=== PATIENT | female | born 1995 | race Caucasian/White ===

== ENCOUNTER 2018-06-26 11:14 | Emergency (ER) | payer OTHER ==
[~2018-06-26] VITALS: Ht 167.6 cm; Wt 120.2 kg
[2018-06-26 12:46] LABS: BASOPHIL % 0.2 % (0-2)
[2018-06-26 12:54] LABS: CARBON DIOXIDE 22.9 mmol/L (21-32); CHLORIDE SERUM 102 mmol/L (98-107); CREATININE SERUM 0.9 mg/dL (0.6-1.0); GFR1 > 60 mL/min; GLUCOSE SERUM 90 mg/dL (74-106); POTASSIUM SERUM 3.3 mmol/L (3.5-5.1); SODIUM SERUM 135 mmol/L (136-145)
[2018-06-26 13:32] LABS: RED CELL DISTRIBUTION WIDTH 13.1 % (11.5-14.5)
[2018-06-26 13:33] LABS: PLATELET COUNT 265 x10^3mcL (130-400)
[2018-06-26 13:40] VITALS: BP 114/59
== END 2018-06-26 13:40 | disposition home or self-care (01) ==
LOC: ED 11:14
PROVIDERS: Emergency Medicine
DX: E87.6 Hypokalemia (principal); R42 Dizziness and giddiness; Z48.01 Encounter for change or removal of surgical wound dressing
CPT/HCPCS: 36415; Q0162

== ENCOUNTER 2018-07-20 12:56 | Emergency (ER) | payer OTHER ==
[~2018-07-20] VITALS: Ht 167.6 cm; Wt 118.8 kg
[2018-07-20 12:58] VITALS: Ht 167.6 cm; Wt 118.8 kg
[2018-07-20 13:32] VITALS: BP 106/49
== END 2018-07-20 13:32 | disposition home or self-care (01) ==
LOC: ED 12:56
DX: H10.89 Other conjunctivitis (principal); J45.909 Unspecified asthma, uncomplicated; F17.210 Nicotine dependence, cigarettes, uncomplicated; Z98.890 Other specified postprocedural states

== ENCOUNTER 2018-09-11 16:33 | Emergency (ER) | payer OTHER ==
[~2018-09-11] VITALS: Ht 167.6 cm; Wt 122.9 kg
[2018-09-11 16:42] VITALS: Ht 167.6 cm; Wt 122.9 kg
[2018-09-11 18:53] VITALS: BP 104/55
== END 2018-09-11 18:53 | disposition home or self-care (01) ==
LOC: ED 16:33
DX: L02.211 Cutaneous abscess of abdominal wall (principal); J45.909 Unspecified asthma, uncomplicated; F17.210 Nicotine dependence, cigarettes, uncomplicated
CPT/HCPCS: J1885; J2001

== ENCOUNTER 2018-09-13 09:34 | Emergency (ER) | payer OTHER ==
[~2018-09-13] VITALS: Ht 167.6 cm; Wt 123.8 kg
[2018-09-13 09:53] VITALS: Ht 167.6 cm; Wt 123.8 kg
[2018-09-13 10:31] VITALS: BP 110/59
== END 2018-09-13 10:31 | disposition home or self-care (01) ==
LOC: ED 09:34
DX: L02.211 Cutaneous abscess of abdominal wall (principal); J45.909 Unspecified asthma, uncomplicated; F17.210 Nicotine dependence, cigarettes, uncomplicated; Z98.890 Other specified postprocedural states

== ENCOUNTER 2018-10-23 08:58 | Emergency (ER) | payer OTHER ==
[~2018-10-23] VITALS: Ht 167.6 cm; Wt 127.0 kg
[2018-10-23 09:02] VITALS: BP 133/93; Ht 167.6 cm; Wt 127.0 kg
== END 2018-10-23 09:36 | disposition home or self-care (01) ==
LOC: ED 08:58
DX: J02.9 Acute pharyngitis, unspecified (principal); J45.909 Unspecified asthma, uncomplicated

== ENCOUNTER 2019-01-13 12:53 | Emergency (ER) | payer OTHER ==
[~2019-01-13] VITALS: Ht 167.6 cm; Wt 122.5 kg
[2019-01-13 12:57] VITALS: BP 109/67; Ht 167.6 cm; Wt 122.5 kg
== END 2019-01-13 15:33 | disposition home or self-care (01) ==
LOC: ED 12:53
DX: G43.909 Migraine, unspecified, not intractable, without status migrainosus (principal); J45.909 Unspecified asthma, uncomplicated
CPT/HCPCS: J0780; J1885

== ENCOUNTER 2019-04-04 08:41 | Emergency (ER) | payer OTHER ==
[~2019-04-04] VITALS: Ht 167.6 cm; Wt 120.7 kg
[2019-04-04 08:48] VITALS: BP 100/56; Ht 167.6 cm; Wt 120.7 kg
== END 2019-04-04 10:12 | disposition home or self-care (01) ==
LOC: ED 08:41
DX: L50.9 Urticaria, unspecified (principal); F17.210 Nicotine dependence, cigarettes, uncomplicated; J45.909 Unspecified asthma, uncomplicated; F32.9 Major depressive disorder, single episode, unspecified
CPT/HCPCS: J7512

== ENCOUNTER 2019-05-15 22:33 | Emergency (ER) | payer OTHER ==
[~2019-05-15] VITALS: Ht 167.6 cm; Wt 120.7 kg
[2019-05-15 22:44] VITALS: Ht 167.6 cm; Wt 120.7 kg
[2019-05-16 01:02] VITALS: BP 119/64
== END 2019-05-16 01:02 | disposition home or self-care (01) ==
LOC: ED 22:33
DX: L02.31 Cutaneous abscess of buttock (principal); J45.909 Unspecified asthma, uncomplicated; F32.9 Major depressive disorder, single episode, unspecified; Z98.890 Other specified postprocedural states
CPT/HCPCS: J2001

== ENCOUNTER 2019-05-16 20:34 | Emergency (ER) | payer OTHER ==
[~2019-05-16] VITALS: Ht 165.1 cm; Wt 118.4 kg
[2019-05-16 20:39] VITALS: BP 112/62; Ht 165.1 cm; Wt 118.4 kg
== END 2019-05-16 21:37 | disposition home or self-care (01) ==
LOC: ED 20:34
DX: L02.215 Cutaneous abscess of perineum (principal); J45.909 Unspecified asthma, uncomplicated; F32.9 Major depressive disorder, single episode, unspecified; Z48.01 Encounter for change or removal of surgical wound dressing; Z98.890 Other specified postprocedural states

== ENCOUNTER 2019-08-11 08:36 | Emergency (ER) | payer OTHER ==
[~2019-08-11] VITALS: Ht 167.6 cm; Wt 114.8 kg
[2019-08-11 08:40] VITALS: Ht 167.6 cm; Wt 114.8 kg
[2019-08-11 10:25] VITALS: BP 104/57
== END 2019-08-11 10:25 | disposition home or self-care (01) ==
LOC: ED 08:36
DX: J02.9 Acute pharyngitis, unspecified (principal); L02.211 Cutaneous abscess of abdominal wall; F32.9 Major depressive disorder, single episode, unspecified; E66.01 Morbid (severe) obesity due to excess calories; Z68.41 Body mass index [BMI] 40.0-44.9, adult; Z98.890 Other specified postprocedural states; Z91.018 Allergy to other foods
CPT/HCPCS: 82962

== ENCOUNTER 2020-07-03 08:12 | Emergency (ER) | payer OTHER, SELFPAY ==
[~2020-07-03] VITALS: Ht 167.6 cm; Wt 111.1 kg
[2020-07-03 08:13] VITALS: BP 134/82; Ht 167.6 cm; Wt 111.1 kg
== END 2020-07-03 10:27 | disposition home or self-care (01) ==
LOC: ED 08:12
DX: J03.90 Acute tonsillitis, unspecified (principal); J45.909 Unspecified asthma, uncomplicated; Z98.890 Other specified postprocedural states; Z91.018 Allergy to other foods